=== PATIENT | male | born 1970 | race Caucasian/White ===

== ENCOUNTER 2021-01-12 20:05 | Inpatient (IN) | payer MEDICAID, OTHER, SELFPAY ==
--- NOTE | ~2021-01-12 | CT_ITS ---
EXAMINATION: CT ABDOMEN AND PELVIS WITHOUT CONTRAST CLINICAL INFORMATION: Left-sided pain with question of stone COMPARISON: MR abdomen 06/18/2017, CT abdomen pelvis 06/03/2017 TECHNIQUE: Multidetector volumetric imaging was performed from the superior aspect of the liver through the pubic symphysis. Sagittal and coronal reformatted images were obtained on the technologist's workstation. This CT examination was performed using dose optimization techniques as appropriate, variously including the following: *Automated exposure control *Adjustment of mA and/or kV according to patient size (this includes techniques or standardized protocols for targeted exams where dose is matched to indication/reason for exam; i.e. extremities or head) *Use of iterative reconstruction technique DLP: 541 mGy-cm FINDINGS: LUNG BASES: The visualized lung bases are unremarkable. LIVER, GALLBLADDER, AND BILIARY TREE: The liver is normal in size, shape, and attenuation. 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 There is one small hypodensity seen in the liver measuring 5 mm (4:227) that probably represents a small cyst. No focal hepatic lesion or biliary ductal dilatation is present. The gallbladder is unremarkable with no evidence of radiopaque gallstones, gallbladder wall thickening, or obvious pericholecystic inflammatory changes. PANCREAS: Unremarkable. SPLEEN: Unremarkable. ADRENAL GLANDS: Unremarkable. KIDNEYS AND URETERS: The kidneys are normal in size, shape, and attenuation. [place] is nonrotated with an anteriorly facing renal pelves. A water density benign Bosniak class I cyst is noted in the right kidney (4:211). No solid renal masses are seen but assessment is limited on noncontrast studies. No hydronephrosis, hydroureter, or calculi seen. No perinephric stranding. BLADDER: Unremarkable. GASTROINTESTINAL TRACT: Of note, in the distal descending colon there is evidence of acute diverticulitis with pericolonic thickening and associated thickening of the lateral conal fascia inflammatory changes extending into the pericolonic fat. Scattered diverticula seen elsewhere in the colon. The small and large bowel are otherwise unremarkable. The appendix is unremarkable. ABDOMINAL WALL: No significant hernia is appreciated. LYMPH NODES: No retroperitoneal lymphadenopathy. VASCULAR: Unremarkable. PELVIC VISCERA: Unremarkable. OSSEOUS STRUCTURES: Unremarkable. CT/CT abdomen pelvis wo con IMPRESSION: Acute uncomplicated diverticulitis distal descending colon. This critical result was discussed with Dr. Ng at 10:30 PM on the evening of the exam and it was ascertained that the content and urgency of the report was understood at the time of direct communication. Incidental note made of a tiny hepatic cyst and left renal cyst which need no further follow-up.
[2021-01-12 20:33] VITALS: BP 112/71; PULSE 93; RESP 16; TEMP 37.3; O2SAT 95; BMI 20.3
[2021-01-12 20:50] LABS: Appearance Urine CLEAR; Color Urine YELLOW; Glucose Urine UA NEG (NEG); Leukocyte Esterase Urine NEG (NEG); Nitrite Urine NEG (NEG); PH 6.5 (5.0-8.0); UACC Culture Trigger NO; Urine Blood 1+ (NEG); Urine Ketones NEG (NEG); Urine Protein NEG (NEG-TRACE)
[2021-01-12 20:55] LABS: Mucus Urine 1+ /LPF; Squamous Epithelial Cell Urine TRACE /LPF
[2021-01-12 20:56] LABS: RBC Urine 0-2 /HPF (0); WBC Urine 0 /HPF (0-4)
[2021-01-12 21:45] VITALS: BP 124/80; PULSE 89; RESP 16; TEMP 37; O2SAT 95
[2021-01-12 21:55] LABS: MANUAL DIFF FLAG NO
--- NOTE | 2021-01-12 21:56 | ED_ITS ---
HPI - Abdominal Pain General Chief Complaint: Abdominal Pain Stated Complaint: Abdominal pain Time Seen by Provider: 01/12/21 21:56 Source: patient and family Mode of arrival: ambulatory Limitations: language barrier History of Present Illness HPI narrative: Patient with no significant history of abdominal complaints in the past, no history of kidney stone noticed gradual onset of pain in left lower quadrant radiating to the left testicle for last 2 days pain is getting worse today no fever no chills no urinary symptoms no diarrhea no blood in the stool patient not eating much for last 24 hours because of pain , pain increased on ambulation no fever or chills patient never had similar pain in the past Related Data Home Medications Medication Instructions Recorded Confirmed No Known Home Meds 01/12/21 01/12/21 Allergies Allergy/AdvReac Type Severity Reaction Status Date / Time No Known Allergies Allergy Verified 01/12/21 20:32 [No Known Allergies*] Review of Systems Review of Systems Yes all other systems are reviewed and are negative Physical Exam Vital Signs: Vital Signs: Last Vital Signs Temp 98.6 F 01/12/21 21:45 Pulse 75 01/12/21 23:33 Resp 16 01/12/21 23:33 BP 120/77 01/12/21 23:33 Pulse Ox 96 01/12/21 23:31 Body Mass Index 20.3 Appearance: Alert. Oriented X3. Mild distress Eyes: No pallor or icterus ENT: Pharynx normal. Oral Mucosa moist Neck: Normal inspection. Neck supple. CVS: Normal heart rate and rhythm. Pulses normal. Respiratory: No respiratory distress. Equal air entry bilateral, no wheezing/rales/rhonchi Abdomen: Soft , deep tenderness left lower quadrant with guarding no rebound tenderness, Bowel sounds are present, no mass palpable, no CVA tenderness Skin: Skin warm and dry. Normal skin color. Normal skin turgor. Extremities: No lower extremity edema. No calf tenderness Neuro: Oriented X 3. MDM - Abdominal Pain MDM Narrative Medical decision making narrative: Patient with leukocytosis of 16,000, lactic acid 0.6, UA 1+ RBCs CT scan negative for kidney stone shows uncomplicated diverticulitis will admit patient for IV antibiotic Levaquin and Flagyl Lab Data Attestation: I reviewed the patient's lab results. Result diagrams: 01/12/21 21:51 01/12/21 21:51 Labs: Lab Results 01/12/21 01/12/21 01/12/21 Range/Units 20:43 21:51 21:51 WBC 16.0 H (4.8-10.8) X10*3/uL RBC 5.18 (4.60-5.80) X10*6/uL Hgb 15.8 (14.0-18.0) g/dl Hct 46.4 (42-52) % MCV 89.6 (80-98) fL MCH 30.5 (27.0-33.0) pg MCHC 34.1 (31.0-36.0) g/dl RDW 12.7 (11.0-16.0) % Plt Count 270 (160-400) X10*3/uL MPV 9.6 (9.4-12.4) fL Immature Gran % (Auto) 0.5 H (0.0-0.4) % Neut % (Auto) 72.2 (45-73) % Lymph % (Auto) 16.9 L (20-40) % [place] % (Auto) 9.0 (2-11) % Eos % (Auto) 1.0 (0-4) % Baso % (Auto) 0.4 (0-2) % Lymph # (Auto) 2.7 (1.2-4.9) X10*3/uL [place] # (Auto) 1.4 H (0.1-1.2) X10*3/uL Eos # (Auto) 0.2 (0.0-0.4) X10*3/uL Baso # (Auto) 0.1 (0.0-0.2) X10*3/uL Abs Immat Gran (auto) 0.08 H (0.00-0.03) X10*3/uL Absolute Neuts (auto) 11.6 H (2.0-8.3) X10*3/uL Absolute Nucleated RBC 0.000 (0.0-0.012) X10*3/uL Nucleated RBC % (auto) 0.0 (0.0-0.2) /100WBC Sodium 139 (135-145) mmol/L Potassium 3.8 (3.3-5.1) mmol/L Chloride 107 (96-108) mmol/L Carbon Dioxide 23 (22-29) mmol/L Anion Gap 13 (12-20) BUN 19 H (9-16) mg/dL Creatinine 1.44 H (0.5-1.4) mg/dL Estim Creat Clear Calc 59.0 Estimated GFR 52 Random Glucose 99 (60-115) mg/dL Lactic Acid (0.5-2.0) mmol/L Calcium 9.0 (8.4-10.2) mg/dL Total Bilirubin 0.7 (0.0-1.0) mg/dL AST 46 H (5-37) U/L ALT 30 (0-40) U/L Alkaline Phosphatase 70 (39-117) U/L Total Protein 7.2 (6.5-8.0) g/dL Albumin 4.5 (3.5-5.0) g/dL Urine Color YELLOW Urine Appearance CLEAR Urine pH 6.5 (5.0-8.0) Ur Specific [place] 1.010 (1.005-1.025) Urine Protein NEG (NEG-TRACE) MG/DL Urine Glucose (UA) NEG (NEG) MG/DL Urine Ketones NEG (NEG) MG/DL Urine Blood 1+ H (NEG) Urine Nitrite NEG (NEG) Ur Leukocyte Esterase NEG (NEG) Urine RBC 0-2 (0) /HPF Urine WBC 0 (0-4) /HPF Ur Squamous Epith Cells TRACE /LPF Urine Bacteria NONE /LPF Urine Mucus 1+ /LPF 01/12/ Range/Units 22:43 WBC (4.8-10.8) X10*3/uL RBC (4.60-5.80) X10*6/uL Hgb (14.0-18.0) g/dl Hct (42-52) % MCV (80-98) fL MCH (27.0-33.0) pg MCHC (31.0-36.0) g/dl RDW (11.0-16.0) % Plt Count (160-400) X10*3/uL MPV (9.4-12.4) fL Immature Gran % (Auto) (0.0-0.4) % Neut % (Auto) (45-73) % Lymph % (Auto) (20-40) % [place] % (Auto) (2-11) % Eos % (Auto) (0-4) % Baso % (Auto) (0-2) % Lymph # (Auto) (1.2-4.9) X10*3/uL [place] # (Auto) (0.1-1.2) X10*3/uL Eos # (Auto) (0.0-0.4) X10*3/uL Baso # (Auto) (0.0-0.2) X10*3/uL Abs Immat Gran (auto) (0.00-0.03) X10*3/uL Absolute Neuts (auto) (2.0-8.3) X10*3/uL Absolute Nucleated RBC (0.0-0.012) X10*3/uL Nucleated RBC % (auto) (0.0-0.2) /100WBC Sodium (135-145) mmol/L Potassium (3.3-5.1) mmol/L Chloride (96-108) mmol/L Carbon Dioxide (22-29) mmol/L Anion Gap (12-20) BUN (9-16) mg/dL Creatinine (0.5-1.4) mg/dL Estim Creat Clear Calc Estimated GFR Random Glucose (60-115) mg/dL Lactic Acid 0.9 (0.5-2.0) mmol/L Calcium (8.4-10.2) mg/dL Total Bilirubin (0.0-1.0) mg/dL AST (5-37) U/L ALT (0-40) U/L Alkaline Phosphatase (39-117) U/L Total Protein (6.5-8.0) g/dL Albumin (3.5-5.0) g/dL Urine Color Urine Appearance Urine pH (5.0-8.0) Ur Specific [place] (1.005-1.025) Urine Protein (NEG-TRACE) MG/DL Urine Glucose (UA) (NEG) MG/DL Urine Ketones (NEG) MG/DL Urine Blood (NEG) Urine Nitrite (NEG) Ur Leukocyte Esterase (NEG) Urine RBC (0) /HPF Urine WBC (0-4) /HPF Ur Squamous Epith Cells /LPF Urine Bacteria /LPF Urine Mucus /LPF Discharge Plan Discharge Clinical Impression: Diverticulitis Patient Disposition: Admitted As [facility] Past Medical History Surgical History Hx of vasectomy Social History Social History Smoked in Last 30 Days: No Use of substances other than those prescribed or required for medical reasons: No Advance Directives: No Advance Directives Information Provided: Yes
[2021-01-12 21:57] LABS: Basophils Absolute Auto 0.1 X10*3/uL (0.0-0.2); Basophils Percent Auto 0.4 % (0-2); Eosinophils Absolute Auto 0.2 X10*3/uL (0.0-0.4); Hematocrit 46.4 % (42-52); Hemoglobin 15.8 g/dl (14.0-18.0); Imm Gran Abs Auto 0.08 X10*3/uL (0.00-0.03); Imm Gran Pct Auto 0.5 % (0.0-0.4); Lymphocytes Absolute Auto 2.7 X10*3/uL (1.2-4.9); Lymphocytes Percent Auto 16.9 % (20-40); Mean Corpuscular HGB Conc 34.1 g/dl (31.0-36.0); Mean Corpuscular Hemoglobin 30.5 pg (27.0-33.0); Mean Corpuscular Volume 89.6 fL (80-98); Mean Platelet Volume 9.6 fL (9.4-12.4); Monocytes Absolute Auto 1.4 X10*3/uL (0.1-1.2); Neutrophils Absolute Auto 11.6 X10*3/uL (2.0-8.3); Neutrophils Percent Auto 72.2 % (45-73); Platelet Count 270 X10*3/uL (160-400); Red Blood Count 5.18 X10*6/uL (4.60-5.80); Red Cell Distribution Width 12.7 % (11.0-16.0)
[2021-01-12 22:11] LABS: Alanine Aminotransferase 30 U/L (0-40); Albumin Level 4.5 g/dL (3.5-5.0); Alkaline Phosphatase 70 U/L (39-117); Anion Gap 13 (12-20); Aspartate Amino Transferase 46 U/L (5-37); Bilirubin Total 0.7 mg/dL (0.0-1.0); Blood Urea Nitrogen 19 mg/dL (9-16); Carbon Dioxide 23 mmol/L (22-29); Chloride 107 mmol/L (96-108); Estimated Glomerular Filt Rate 52; Glucose Random 99 mg/dL (60-115); Potassium 3.8 mmol/L (3.3-5.1); Sodium 139 mmol/L (135-145); Total Protein 7.2 g/dL (6.5-8.0)
[2021-01-12] MEDS: Ketorolac Tromethamine 15 MG/ML VIAL 30 MG IVPUSH (22:19)
[2021-01-12] MEDS: ondansetron HCL 4 MG/2 ML VIAL IVPUSH (22:20)
[2021-01-12] MEDS: Morphine Sulfate 4 MG/ML CARTRIDGE IVPUSH (22:20)
[2021-01-12] MEDS: levoFLOXacin/D5W 500 MG/100 ML PIGGYBACK 100 MG IV (22:47)
[2021-01-12 23:03] LABS: Lactic Acid 0.9 mmol/L (0.5-2.0)
[2021-01-12 23:31] VITALS: BP 120/77; PULSE 79; RESP 16; O2SAT 96
[2021-01-12 23:32] VITALS: BP 120/77; PULSE 78; RESP 16
[2021-01-12 23:33] VITALS: BP 120/77; PULSE 75; RESP 16
[2021-01-12] MEDS: 0.9 % Sodium Chloride 1,000 ML 999 ML IVCONT (23:34)
[2021-01-12] MEDS: metroNIDAZOLE/NS 500 MG/100 ML PIGGYBACK 100 MG IV (23:38)
[2021-01-13 00:18] LABS: COVID-19 Test Negative (Negative); IDNOW Serial# 9DD0AD1C
[2021-01-13] MEDS: Lactated Ringers 1,000 ML 100 ML IVCONT ×3 (01:13→21:43)
[2021-01-13] MEDS: Heparin Sodium,Porcine 5,000 UNIT/ML VIAL 5000 UNIT SUBCUT ×3 (01:14→23:32)
[2021-01-13] MEDS: 0.9 % Sodium Chloride Flush 3 ML SYRINGE IVFLUSH (01:16)
[2021-01-13 01:46] VITALS: BP 135/77; PULSE 75; RESP 18; TEMP 36.3; O2SAT 96
[2021-01-13] MEDS: metroNIDAZOLE/NS 500 MG/100 ML PIGGYBACK 100 MG IV ×3 (05:31→23:21)
[2021-01-13 06:04] LABS: MANUAL DIFF FLAG NO
[2021-01-13 06:11] LABS: Basophils Absolute Auto 0.1 X10*3/uL (0.0-0.2); Basophils Percent Auto 0.6 % (0-2); Eosinophils Absolute Auto 0.3 X10*3/uL (0.0-0.4); Eosinophils Percent Auto 3.3 % (0-4); Hematocrit 43.1 % (42-52); Hemoglobin 14.1 g/dl (14.0-18.0); Imm Gran Abs Auto 0.06 X10*3/uL (0.00-0.03); Imm Gran Pct Auto 0.6 % (0.0-0.4); Lymphocytes Absolute Auto 2.7 X10*3/uL (1.2-4.9); Lymphocytes Percent Auto 26.6 % (20-40); Mean Corpuscular HGB Conc 32.7 g/dl (31.0-36.0); Mean Corpuscular Hemoglobin 30.3 pg (27.0-33.0); Mean Corpuscular Volume 92.7 fL (80-98); Monocytes Absolute Auto 1.1 X10*3/uL (0.1-1.2); Monocytes Percent Auto 10.8 % (2-11); Neutrophils Absolute Auto 5.8 X10*3/uL (2.0-8.3); Neutrophils Percent Auto 58.1 % (45-73); Platelet Count 225 X10*3/uL (160-400); Red Blood Count 4.65 X10*6/uL (4.60-5.80); Red Cell Distribution Width 13.1 % (11.0-16.0)
--- NOTE | 2021-01-13 06:18 | PM.IMHP ---
History of Present Illness Date of Service: 01/13/21 Chief Complaint: abd pain Is a 50-year-old male, Afghan speaking only, with no significant past medical history presents to the hospital with abdominal pain that started on night. The pain is localized to the left lower abdomen, 5/10, intermittent, nonradiating, worse with walking and movement, relieved by pain medication, no previous similar episode. Patient denies any fever or chills,, no chest pain, no shortness of breath, no diarrhea or constipation, no urinary symptoms and no lower extremity edema. On arrival to the ED patient hemodynamically stable with No significant abnormal vitals Labs done on arrival reviewed show BUN of 19 with a creatinine of 1.44 with no other significant abnormality. No previous labs for comparison. Abdominal pelvic CT shows acute uncomplicated diverticulitis distal descending colon Patient will be admitted for management Review of Systems Review of Systems: Yes all other systems are reviewed and are negative [facility] Medical History No pertinent past medical history Family History Father Hypertension Mother Diabetes Pertinent family history: No pertinent family history Surgical History Hx of vasectomy Social History Household Members: Family Housing: Apartment Do you presently have visiting nurse or other home services: No Patient Tobacco Use Status: Never used Tobacco Smoked in Last 30 Days: No Use of substances other than those prescribed or required for medical reasons: No Have you been hit, kicked, punched, or otherwise hurt by someone within the past year? If so, by whom?: No Do you feel safe in your current relationship?: Yes Is there a partner from a previous relationship who is making you feel unsafe now?: No Are you made to feel afraid or neglected: No Advance Directives: No Advance Directives Information Provided: Yes Do you have thoughts of harming others: None Do you have a plan to hurt others: No Plan Recently lost weight without trying: No Meds Allergies Allergy/AdvReac Type Severity Reaction Status Date / Time No Known Allergies Allergy Verified 01/12/21 20:32 [No Known Allergies*] Active Medications: Current Medications Acetaminophen (Acetaminophen 325 Mg Tablet) 650 mg PO Q6H PRN PRN Reason: Pain, Mild (Pain Scale 1-3) Heparin Sodium (Porcine) (Heparin Sodium,Porcine 5,000 Unit/Ml Vial) 5,000 unit SUBCUT Q12H [facility] Last Admin: 01/13/21 01:14 Dose: 5,000 unit Documented by: Metronidazole (Flagyl) 500 mg in 100 mls @ 100 mls/hr IV Q8H [facility] Last Admin: 01/13/21 05:31 Dose: 100 mls/hr Documented by: Lactated Ringer's (Lr) 1,000 mls @ 100 mls/hr IVCONT .Q10H [facility] Last Admin: 01/13/21 01:13 Dose: 100 mls/hr Documented by: Levofloxacin (Levaquin) 750 mg in 150 mls @ 100 mls/hr IV Q24H [facility] Ondansetron HCl (Ondansetron Hcl 4 Mg/2 Ml Vial) 4 mg IVPUSH Q8H PRN PRN Reason: Nausea and Vomiting Oxycodone HCl (Oxycodone Hcl Immed Release 5 Mg Tablet) 5 mg PO Q6H PRN PRN Reason: Pain, Severe (Pain Scale 7-10) Sodium Chloride (0.9 % Sodium Chloride Flush 3 Ml Syringe) 3 ml IVFLUSH QSHIFT [facility] Last Admin: 01/13/21 01:16 Dose: 3 ml Documented by: Home Medications Medication Instructions Recorded Confirmed Last Taken Type No Known Home Meds 01/12/21 01/12/21 Unknown History Physical Exam Vital Signs and Narrative: Vital Signs: Last Vital Signs Temp 97.3 F 01/13/21 01:46 Pulse 75 01/13/21 01:46 Resp 18 01/13/21 01:46 BP 135/77 01/13/21 01:46 Pulse Ox 96 01/13/21 01:46 Body Mass Index 20.3 Const: General: cooperative and no acute distress Orientation/consciousness: patient oriented x3 Eyes: General: appearance normal, both eyes and all related structures Pupils: Equal, round and reactive pupils present Resp: Effort & Inspection: normal respiratory effort Auscultation: clear to auscultation bilaterally Cardio: Rate: regular rate Rhythm: regular rhythm GI: Other: Mild tenderness in the left lower quadrant, no rebound no guarding Palpation (GI): Soft to palpation Auscultation: normal bowel sounds Skin: General skin exam: no rashes or lesions noted Neuro: General: patient oriented x3 Cranial nerves: Yes Equal, round and reactive pupils present Cognition (Neuro): normal cognition Extrem: General: Yes normal to inspection and Yes no pedal edema Results Labs CBC and Chem 7: 01/13/21 05:35 01/12/21 21:51 Labs: Laboratory Results - last 24 hr 01/12/21 01/12/21 01/12/21 20:43 21:51 21:51 MCV 89.6 MCH 30.5 MCHC 34.1 RDW 12.7 Plt Count 270 MPV 9.6 Immature Gran % (Auto) 0.5 H Neut % (Auto) 72.2 Lymph % (Auto) 16.9 L [place] % (Auto) 9.0 Eos % (Auto) 1.0 Baso % (Auto) 0.4 Lymph # (Auto) 2.7 [place] # (Auto) 1.4 H Eos # (Auto) 0.2 Baso # (Auto) 0.1 Abs Immat Gran (auto) 0.08 H Absolute Neuts (auto) 11.6 H Absolute Nucleated RBC 0.000 Nucleated RBC % (auto) 0.0 Anion Gap 13 Estim Creat Clear Calc 59.0 Estimated GFR 52 Random Glucose 99 Lactic Acid Calcium 9.0 Total Bilirubin 0.7 AST 46 H ALT 30 Alkaline Phosphatase 70 Total Protein 7.2 Albumin 4.5 Urine Color YELLOW Urine Appearance CLEAR Urine pH 6.5 Ur Specific [place] 1.010 Urine Protein NEG Urine Glucose (UA) NEG Urine Ketones NEG Urine Blood 1+ H Urine Nitrite NEG Ur Leukocyte Esterase NEG Urine RBC 0-2 Urine WBC 0 Ur Squamous Epith Cells TRACE Urine Bacteria NONE Urine Mucus 1+ COVID-19 (SILVIA) COVID-19 Clin Com 01/12/21 01/12/21 01/13/21 22:43 23:46 05:35 MCV 92.7 MCH 30.3 MCHC 32.7 RDW 13.1 Plt Count 225 MPV 10.0 Immature Gran % (Auto) 0.6 H Neut % (Auto) 58.1 Lymph % (Auto) 26.6 [place] % (Auto) 10.8 Eos % (Auto) 3.3 Baso % (Auto) 0.6 Lymph # (Auto) 2.7 [place] # (Auto) 1.1 Eos # (Auto) 0.3 Baso # (Auto) 0.1 Abs Immat Gran (auto) 0.06 H Absolute Neuts (auto) 5.8 Absolute Nucleated RBC 0.000 Nucleated RBC % (auto) 0.0 Anion Gap Estim Creat Clear Calc Estimated GFR Random Glucose Lactic Acid 0.9 Calcium Total Bilirubin AST ALT Alkaline Phosphatase Total Protein Albumin Urine Color Urine Appearance Urine pH Ur Specific [place] Urine Protein Urine Glucose (UA) Urine Ketones Urine Blood Urine Nitrite Ur Leukocyte Esterase Urine RBC Urine WBC Ur Squamous Epith Cells Urine Bacteria Urine Mucus COVID-19 (SILVIA) Negative COVID-19 Clin Com See Note Imaging Radiologist's Impressions: Impressions Abdomen/Pelvis CT 01/12/21 22:02 IMPRESSION: Acute uncomplicated diverticulitis distal descending colon. This critical result was discussed with Dr. Ng at 10:30 PM on the evening of the exam and it was ascertained that the content and urgency of the report was understood at the time of direct communication. Incidental note made of a tiny hepatic cyst and left renal cyst which need no further follow-up. Assessment and Plan (1) Diverticulitis: Status: Acute This is a 50-year-old male with no significant past medical history presents to the hospital with abdominal pain found to have diverticulitis # diverticulitis - uncomplicated, patient afebrile, leukocytosis - will start him on IV antibiotic - follow cultures - patient would like to go home as soon as possible and therefore given the uncomplicated nature of his diverticulitis can possibly be discharged tomorrow with p.o. antibiotic DVT prophylaxis: Lovenox Quality Stroke Does the patient have a stroke diagnosis?: No VTE Prior VTE?: No VTE Risk Level:: Medical - moderate - high VTE Device Contraindication: Treatment Not Indicated VTE Drug Contraindication: N/A - Med Ordered
[2021-01-13 06:40] LABS: Anion Gap 9 (12-20); Blood Urea Nitrogen 16 mg/dL (9-16); Calcium 8.2 mg/dL (8.4-10.2); Carbon Dioxide 28 mmol/L (22-29); Chloride 108 mmol/L (96-108); Creatinine Clr Calc Pharmacy 61.1; Estimated Glomerular Filt Rate 54; Glucose Random 91 mg/dL (60-115); Sodium 141 mmol/L (135-145)
[2021-01-13 07:16] VITALS: BP 126/73; PULSE 69; RESP 20; TEMP 36.7; O2SAT 98
--- NOTE | 2021-01-13 11:18 | MHC.CM.PN ---
CM MET WITH PT WHO IS [place] SPEAKING. PT DECLINED OFFER FOR IMPLEMENTATION CONSULTANT AND USED HIS CELL PHONE. PER DISCUSSION, PT LIVES WITH FAMILY AND IS FULLY INDEPENDENT WITH ALL CARE PT HAS NO DME AND NO HOME SERVICES PT REPORTS HIS PCP IS DR MINA PT DOES NOT HAVE A HCP BUT REPORTS HE WILL DISCUSS THIS WITH HIS WHEN SHE ARRIVES AROUND 1500 HOURS. PT IS AWARE CM CAN ASSIST WITH HCP COMPLETION. CURRENT DC PLAN IS HOME WITH NO SERVICES PT WILL SELF ARRANGE TRANSPORTATION
--- NOTE | 2021-01-13 11:31 | PM.IMPN ---
Progress Note: A&P (1) Diverticulitis: Status: Acute Assessment and Plan: This is a 50-year-old male with no significant past medical history presents to the hospital with abdominal pain found to have diverticulitis Diverticulitis. uncomplicated, patient afebrile, leukocytosis initially Continue Levaquin, Flagyl Clear liquid diet for now, advance as tolerated follow cultures GI consult DVT prophylaxis Lovenox Attending Dr. Lakhani Subjective Subjective Date of Service: 01/13/21 Review of Systems Follow up diverticulitis Pain is pretty well resolved Has not eaten yet, plans to try the clear liquids Had some nausea yesterday but none today or diarrhea Physical Exam Vital Signs: Vital Signs: Last Vital Signs Temp 98.1 F 01/13/21 07:16 Pulse 69 01/13/21 07:16 Resp 20 01/13/21 07:16 BP 126/73 01/13/21 07:16 Pulse Ox 98 01/13/21 07:16 Body Mass Index 20.3 Appearing in no acute distress lung sounds are clear to auscultation heart regular rate rhythm, clear S1, S2 positive bowel sounds, abdomen is soft, nontender neuro patient is alert x3, no focal deficits Objective Data Current Medications Acetaminophen (Acetaminophen 325 Mg Tablet) 650 mg PO Q6H PRN PRN Reason: Pain, Mild (Pain Scale 1-3) Heparin Sodium (Porcine) (Heparin Sodium,Porcine 5,000 Unit/Ml Vial) 5,000 unit SUBCUT Q12H [facility] Last Admin: 01/13/21 01:14 Dose: 5,000 unit Documented by: Metronidazole (Flagyl) 500 mg in 100 mls @ 100 mls/hr IV Q8H [facility] Last Infusion: 01/13/21 06:37 Dose: Infused Documented by: Lactated Ringer's (Lr) 1,000 mls @ 100 mls/hr IVCONT .Q10H [facility] Last Admin: 01/13/21 01:13 Dose: 100 mls/hr Documented by: Levofloxacin (Levaquin) 750 mg in 150 mls @ 100 mls/hr IV Q24H [facility] Ondansetron HCl (Ondansetron Hcl 4 Mg/2 Ml Vial) 4 mg IVPUSH Q8H PRN PRN Reason: Nausea and Vomiting Oxycodone HCl (Oxycodone Hcl Immed Release 5 Mg Tablet) 5 mg PO Q6H PRN PRN Reason: Pain, Severe (Pain Scale 7-10) Sodium Chloride (0.9 % Sodium Chloride Flush 3 Ml Syringe) 3 ml IVFLUSH QSHIFT [facility] Last Admin: 01/13/21 08:11 Dose: Not Given Documented by: Labs CBC & Chem 7: 01/13/21 05:35 01/13/21 05:35 Labs: Laboratory Results - last 24 hr 01/12/21 01/12/21 01/12/21 20:43 21:51 21:51 MCV 89.6 MCH 30.5 MCHC 34.1 RDW 12.7 Plt Count 270 MPV 9.6 Immature Gran % (Auto) 0.5 H Neut % (Auto) 72.2 Lymph % (Auto) 16.9 L [place] % (Auto) 9.0 Eos % (Auto) 1.0 Baso % (Auto) 0.4 Lymph # (Auto) 2.7 [place] # (Auto) 1.4 H Eos # (Auto) 0.2 Baso # (Auto) 0.1 Abs Immat Gran (auto) 0.08 H Absolute Neuts (auto) 11.6 H Absolute Nucleated RBC 0.000 Nucleated RBC % (auto) 0.0 Anion Gap 13 Estim Creat Clear Calc 59.0 Estimated GFR 52 Random Glucose 99 Lactic Acid Calcium 9.0 Total Bilirubin 0.7 AST 46 H ALT 30 Alkaline Phosphatase 70 Total Protein 7.2 Albumin 4.5 Urine Color YELLOW Urine Appearance CLEAR Urine pH 6.5 Ur Specific [place] 1.010 Urine Protein NEG Urine Glucose (UA) NEG Urine Ketones NEG Urine Blood 1+ H Urine Nitrite NEG Ur Leukocyte Esterase NEG Urine RBC 0-2 Urine WBC 0 Ur Squamous Epith Cells TRACE Urine Bacteria NONE Urine Mucus 1+ COVID-19 ([facility]ILVIA) COVID-19 Clin Com 01/12/21 01/12/21 01/13/21 22:43 23:46 05:35 MCV 92.7 MCH 30.3 MCHC 32.7 RDW 13.1 Plt Count 225 MPV 10.0 Immature Gran % (Auto) 0.6 H Neut % (Auto) 58.1 Lymph % (Auto) 26.6 [place] % (Auto) 10.8 Eos % (Auto) 3.3 Baso % (Auto) 0.6 Lymph # (Auto) 2.7 [place] # (Auto) 1.1 Eos # (Auto) 0.3 Baso # (Auto) 0.1 Abs Immat Gran (auto) 0.06 H Absolute Neuts (auto) 5.8 Absolute Nucleated RBC 0.000 Nucleated RBC % (auto) 0.0 Anion Gap Estim Creat Clear Calc Estimated GFR Random Glucose Lactic Acid 0.9 Calcium Total Bilirubin AST ALT Alkaline Phosphatase Total Protein Albumin Urine Color Urine Appearance Urine pH Ur Specific [place] Urine Protein Urine Glucose (UA) Urine Ketones Urine Blood Urine Nitrite Ur Leukocyte Esterase Urine RBC Urine WBC Ur Squamous Epith Cells Urine Bacteria Urine Mucus COVID-19 (SILVIA) Negative COVID-19 Clin Com See Note 01/13/21 05:35 MCV MCH MCHC RDW Plt Count MPV Immature Gran % (Auto) Neut % (Auto) Lymph % (Auto) [place] % (Auto) Eos % (Auto) Baso % (Auto) Lymph # (Auto) [place] # (Auto) Eos # (Auto) Baso # (Auto) Abs Immat Gran (auto) Absolute Neuts (auto) Absolute Nucleated RBC Nucleated RBC % (auto) Anion Gap 9 L Estim Creat Clear Calc 61.1 Estimated GFR 54 Random Glucose 91 Lactic Acid Calcium 8.2 L D Total Bilirubin AST ALT Alkaline Phosphatase Total Protein Albumin Urine Color Urine Appearance Urine pH Ur Specific [place] Urine Protein Urine Glucose (UA) Urine Ketones Urine Blood Urine Nitrite Ur Leukocyte Esterase Urine RBC Urine WBC Ur Squamous Epith Cells Urine Bacteria Urine Mucus COVID-19 (SILVIA) COVID-19 Clin Com Quality Stroke Does the patient have a stroke diagnosis?: No VTE Prior VTE?: No VTE Risk Level:: Medical - moderate - high VTE Device Contraindication: Treatment Not Indicated VTE Drug Contraindication: N/A - Med Ordered
[2021-01-13 11:34] VITALS: BP 128/80; PULSE 72; RESP 20; TEMP 36.7; O2SAT 98
--- NOTE | 2021-01-13 13:03 | P.CNGI_ITS ---
History of Present Illness Data of Consult Service Date: 01/13/21 Requesting physician: Lakisha Doe Primary Care Provider: Unknown Physician HPI Reason for consult: acute diverticulitis 50 year old Israeli (Portugese speaking) male presented to [facility] [place] ED on 01/12/21 with LLQ pain: HPI narrative: Patient with no significant history of abdominal complaints in the past,? no history of kidney stone noticed gradual onset of pain in left lower quadrant radiating to the left testicle for last 2 days pain is getting worse today no fever no chills no urinary symptoms no diarrhea no blood in the stool patient not eating much for last 24 hours because of pain , pain increased on ambulation no fever or chills patient never had similar pain in the past On arrival to the ED patient hemodynamically stable with No significant abnormal vitals Labs done on arrival reviewed show wbc of 16K, BUN of 19 with a creatinine of 1.44 with no other significant abnormality.? No previous labs for comparison. Pt was admitted and started on IV antibiotics. Notes improvement in abdominal pain and is tolerating a clear liquid diet. Patient denies symptoms of heartburn, dysphagia, change in appetite or weight. Denies recent change in bowel habits, constipation, diarrhea, black stools or rectal bleeding. Patient denies major cardiac or pulmonary problems, loud snoring or sleep apnea Denies being on chronic anticoagulation. Patient denies known family history of colon polyps, colon cancer or other GI malignancies. Pt is and has 4 children He works in House keeping services. IMAGING STUDIES: 01/12/[address] SCAN SHOWED: Acute uncomplicated diverticulitis distal descending colon. Incidental note made of a tiny hepatic cyst and left renal cyst which need no further follow-up. 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 Review of Systems Verdana 4l Constitutional: Verdana 4d Constitutional: Verdana 4d Verdana 4d Denies fever(s), Denies headache(s) and Denies weight loss Verdana 4l Eyes: Verdana 4d Verdana 4d Eyes: Verdana 4d Denies eye discharge and Denies irritation Verdana 4l ENT: Verdana 4d Reports Normal hearing present, Denies dysphagia, Denies dizziness and Denies headache(s) Verdana 4l Cardiovascular: Verdana 4d Cardiovascular: Verdana 4d Verdana 4d Denies chest pain, Denies leg edema and Denies dyspnea on exertion Verdana 4l Respiratory: Verdana 4d Verdana 4d Respiratory: Verdana 4d Denies cough and Denies dyspnea on exertion Verdana 4l Gastrointestinal: Verdana 4d Gastrointestinal: Verdana 4d Verdana 4d Reports abdominal pain, Denies change in bowel habits, Denies dysphagia and Denies heartburn Verdana 4l Genitourinary: Verdana 4d Verdana 4d Genitourinary: Verdana 4d Denies dysuria Verdana 4l Musculoskeletal: Verdana 4d Musculoskeletal: Verdana 4d Verdana 4d Denies back pain and Denies arthralgias Verdana 4l Integumentary/Breasts: Verdana 4d Skin/Breast: Verdana 4d Verdana 4d Denies pruritus, Denies rash and Denies jaundice Verdana 4l Neurologic: Verdana 4d Reports Normal hearing present, Denies Abnormal speech present, Denies dizziness, Denies headache(s) and Denies seizure-like activity Verdana 4l Psychiatric: Verdana 4d Verdana 4d Psychiatric: Verdana 4d Denies anxiety, Denies depression and Denies panic attacks Verdana 4l Endocrine: Verdana 4d Verdana 4d Endocrine: Verdana 4d Denies cold intolerance, Denies flushing and Denies heat intolerance PMFSH Past Medical History Medical History No pertinent past medical history Family History Family History Father Hypertension Mother Diabetes Surgical History Surgical History Hx of vasectomy Social History Social History Household Members: Family Housing: Apartment Do you presently have visiting nurse or other home services: No Patient Tobacco Use Status: Never used Tobacco service: No Current occupational status: unemployed Meds Allergies Allergy/AdvReac Type Severity Reaction Status Date / Time No Known Allergies Allergy Verified 04/10/21 11:28 [No Known Allergies*] Active Medications: Current Medications Acetaminophen (Acetaminophen 325 Mg Tablet) 650 mg PO Q6H PRN PRN Reason: Pain, Mild (Pain Scale 1-3) Heparin Sodium (Porcine) (Heparin Sodium,Porcine 5,000 Unit/Ml Vial) 5,000 unit SUBCUT Q12H [facility] Last Admin: 01/13/21 12:20 Dose: 5,000 unit Documented by: Metronidazole (Flagyl) 500 mg in 100 mls @ 100 mls/hr IV Q8H [facility] Last Infusion: 01/13/21 06:37 Dose: Infused Documented by: Lactated Ringer's (Lr) 1,000 mls @ 100 mls/hr IVCONT .Q10H [facility] Last Admin: 01/13/21 12:11 Dose: 100 mls/hr Documented by: Levofloxacin (Levaquin) 750 mg in 150 mls @ 100 mls/hr IV Q24H [facility]UAN ANTONIO Ondansetron HCl (Ondansetron Hcl 4 Mg/2 Ml Vial) 4 mg IVPUSH Q8H PRN PRN Reason: Nausea and Vomiting Oxycodone HCl (Oxycodone Hcl Immed Release 5 Mg Tablet) 5 mg PO Q6H PRN PRN Reason: Pain, Severe (Pain Scale 7-10) Sodium Chloride (0.9 % Sodium Chloride Flush 3 Ml Syringe) 3 ml IVFLUSH QSHIFT [facility] Last Admin: 01/13/21 08:11 Dose: Not Given Documented by: Physical Exam Verdana 4l Vital Signs: Verdana 4d Verdana 4d Vital Signs: Verdana 4d Verdana 4Bd Last Vital Signs Verdana 4d Custom [employer] Maker New 4d Custom Bow Maker New 4d Temp 98.1 F 01/13/21 11:34 Custom Bow Maker New 4d Pulse 72 01/13/21 11:34 Custom Bow Maker New 4d Resp 20 01/13/21 11:34 BP 128/80 01/13/21 11:34 Pulse Ox 98 01/13/21 11:34 Body Mass Index 20.3 Const: General: healthy appearing and no acute distress Nutritional Appearance: average body habitus Orientation/consciousness: patient oriented x3 Limitations: no limitations HENMT: Head: Yes normal to inspection Ears: hearing grossly normal bilaterally Mouth: Normal oral and palatal mucosa present Eyes: Sclerae: sclerae normal Pupils: Equal, round and reactive pupils present Neck: Neck: Yes normal visual inspection Chest: Chest palpation & inspection: normal inspection of the chest Resp: Effort & Inspection: normal respiratory effort Auscultation: clear to auscultation bilaterally Cardio: Palpation: normal PMI Rate: regular rate Rhythm: regular rhythm Heart sounds: S1 normal heart sound present, S2 normal heart sound present and no murmurs GI: Palpation (GI): Soft to palpation, Tenderness to palpation present (GI) (Mild LLQ tenderness without rebound) and No hepatosplenomegaly present Auscultation: normal bowel sounds Rectal Exam - Male: Yes deferred Skin: General skin exam: no rashes or lesions noted Neuro: General: patient oriented x3, gait normal and moves all extremities Cranial nerves: Yes Equal, round and reactive pupils present and Yes Normal hearing present Speech: No Abnormal speech present Psych: Appearance: grossly normal Mental Status: mental status grossly normal Results Labs CBC & Chem 7: 01/13/21 05:35 01/13/21 05:35 Labs: Short CBC 01/12/21 01/13/21 Range/Units 21:51 05:35 WBC 16.0 H 10.0 (4.8-10.8) X10*3/uL Hgb 15.8 14.1 (14.0-18.0) g/dl Hct 46.4 43.1 (42-52) % Plt Count 270 225 (160-400) X10*3/uL BMP 01/12/21 01/13/21 21:51 05:35 Sodium 139 141 Potassium 3.8 4.0 Chloride 107 108 Carbon Dioxide 23 28 BUN 19 H 16 Creatinine 1.44 H 1.39 Calcium 9.0 8.2 L D Liver Function 01/12/21 Range/Units 21:51 Total Bilirubin 0.7 (0.0-1.0) mg/dL AST 46 H (5-37) U/L ALT 30 (0-40) U/L Alkaline Phosphatase 70 (39-117) U/L Albumin 4.5 (3.5-5.0) g/dL Urine 01/12/21 Range/Units 20:43 Urine Color YELLOW Urine Appearance CLEAR Urine pH 6.5 (5.0-8.0) Ur Specific [place] 1.010 (1.005-1.025) Urine Protein NEG (NEG-TRACE) MG/DL Urine Glucose (UA) NEG (NEG) MG/DL Assessment and Plan (1) Diverticulitis: Status: Acute Plan 50 year old Israeli (Portugese speaking) male without significant medical problems admitted with LLQ pain x 2 days and diagnosed with acute diverticulitis on Abd CT scan. Pt's symptoms are improving on IV antibitoics and pain medications. RECOMMENDATIONS: 1. Continue IV antibiotics. 2. Advance diet in the am and if he tolerates solid food, he can be switched to PO antibiotics x 7 days and discharged home. 3. I will arrange for a Colonoscopy as an out patient in 4 to 6 weeks - procedure and potential complications including bleeding, perforation, reaction to anesthetic were reviewed with the patient with the help of a [employer] mri technician. Procedures Date of Service Date of Service: 01/13/21
[2021-01-13 15:36] VITALS: BP 130/83; PULSE 69; RESP 16; TEMP 37.2; O2SAT 97
--- NOTE | 2021-01-13 16:17 | MHC.CLN ---
NUTRITION VISITED WITH PATIENT USING TRANSLATING DEVICE. DIET=CLEAR LIQUIDS AND REPORTS THAT EATING WELL, BUT IS HUNGRY. COULD NOT REMEMBER HEIGHT. HEIGHT IN CHART=6'. PATIENT LYING IN BED, BUT HEIGHT APPEARS TO BE CLOSE TO 5'6 . IF HEIGHT=5'6 , BMI=24.3 AND PATIENT IS 105% OF IBW. IF HEIGHT=6', BMI=20.3 AND WEIGHT IS 84% OF IBW. PATIENT APPEARS WELL NOURISHED AND DOES NOT APPEAR TO BE UNDERWEIGHT. NOT CONSIDERED HIGH NUTRITIONAL RISK. FOLLOW WEEKLY.
[2021-01-13 19:23] VITALS: BP 129/83; PULSE 75; RESP 15; TEMP 37.1; O2SAT 97
[2021-01-13] MEDS: levoFLOXacin/D5W 750 MG/150 ML PIGGYBACK 100 MG IV (21:43)
[2021-01-14] VITALS: BP 132/87; PULSE 71; RESP 16; TEMP 36.6; O2SAT 98
[2021-01-14 04:00] VITALS: BP 142/85; PULSE 71; RESP 16; TEMP 36.9; O2SAT 97
[2021-01-14] MEDS: Lactated Ringers 1,000 ML 100 ML IVCONT (05:58)
[2021-01-14] MEDS: metroNIDAZOLE/NS 500 MG/100 ML PIGGYBACK 100 MG IV (05:58)
[2021-01-14 07:28] VITALS: BP 122/81; PULSE 72; RESP 18; TEMP 37.4; O2SAT 95
--- NOTE | 2021-01-14 10:05 | PM.DS ---
DS: Providers Provider Date of Service: 01/14/21 Date of admission: 01/12/21 23:19 Primary care physician: Unknown Physician Consults: 01/13/21 11:38 Consult to Gastroenterology Routine Consulting Provider: Maria Amos Reason for consultation: diverticulitis Has provider been notified: No Attending physician on discharge: Maico Lakhani Discharging clinician: Lakisha Doe DS: Diagnosis Discharge Diagnosis (1) Diverticulitis: Status: Acute DS: Summary Hospital Course Hospital Course: HP as admitting 50-year-old male, Italian speaking only,? with no significant past medical history presents to the hospital with abdominal pain that started on night.? The pain is localized to the left lower abdomen, 5/10, intermittent, nonradiating, worse with walking and movement, relieved by pain medication, no previous similar episode.? Patient denies any fever or chills,, no chest pain, no shortness of breath, no diarrhea or constipation, no urinary symptoms and no lower extremity edema. On arrival to the ED patient hemodynamically stable with No significant abnormal vitals. Labs done on arrival reviewed show BUN of 19 with a creatinine of 1.44 with no other significant abnormality.? No previous labs for comparison. Abdominal pelvic CT shows acute uncomplicated diverticulitis distal descending colon . Diverticulitis. Pain resolved. Treated with IV Levaquin and flagyl. Vital signs stable, labs within acceptable limits. Advanced diet to regular with no problems. Will send home with 8 more days of Levaquin and flagyl. Patient medically stable for discharge. DEB. Mild, resolved with IV fluids. Time Spent with Patient Time attestation: Total time spent providing and/or coordinating discharge services: Discharge coordination time: Greater than 30 minutes Quality: Stroke Does the patient have a stroke diagnosis?: No Physical Exam Vital Signs: Vital Signs: Last Vital Signs Temp 99.3 F 01/14/21 07:28 Pulse 72 01/14/21 07:28 Resp 18 01/14/21 07:28 BP 122/81 01/14/21 07:28 Pulse Ox 95 01/14/21 07:28 Body Mass Index 20.3 Appearing in no acute distress head is normocephalic atraumatic eyes pupils are PERRLA sclera is anicteric mouth throat mucous membranes are intact and moist neck is supple no lymphadenopathy, no JVD noted lung sounds are clear to auscultation heart regular rate rhythm, clear S1, S2 positive bowel sounds, abdomen is soft, nontender neuro patient is alert x3, no focal deficits DS: Data Data Completed and Pending Labs on day of discharge: Preliminary micro results at discharge 01/12/21 22:46 Blood Culture - Preliminary Blood - Venous No growth after 24 hours. 01/12/21 22:43 Blood Culture - Preliminary Blood - Venous No growth after 24 hours. Discharge Plan Discharge Anticipated Discharge Date/Time: 01/14/21 10:00 Patient Disposition: Home, Self-Care Discharge Diagnosis: Diverticulitis Referrals: Physician,Unknown J [Primary Care Provider] - 1 Week Discharge Medications: New levofloxacin 750 mg tablet 750 mg PO DAILY Qty: 8 RF: 0 metronidazole [Flagyl] 375 mg capsule 375 mg PO BID Qty: 16 RF: 0 Discharge Orders: Discharge Order (Routine); Ordered 01/14/21 Ordered By: Lakisha Doe Diet: advance to usual diet Activity on Discharge: As tolerated Stand Alone Forms: Patient Portal Discharge page Care Plan Goals: Complete resolution of symptoms Health Concerns: diverticulitis Plan of Treatment: Continue antibiotics as prescribed Assessment: See discharge summary
--- NOTE | 2021-01-14 10:18 | MHC.CM.PN ---
PATIENT IS DISCHARGED HOME - SELF CARE. RN AWARE OF PLAN. PATIENT IS ABLE TO ARRANGE FAMILY TRANSPORT HOME.
== END 2021-01-14 10:31 | disposition home or self-care (01) | DRG 244 ==
LOC: HO.ED 01-13 00:05 → HO.S3 01-13 00:23
PROVIDERS: Admitting Provider Internal Medicine; Emergency Provider Internal Medicine; PCP Internal Medicine; Visit Provider Nurse Practitioner Acute Care
DX: K57.32 Diverticulitis of large intestine without perforation or abscess without bleeding (principal); N17.9 Acute kidney failure, unspecified; Z20.822 Contact with and (suspected) exposure to COVID-19; Z23 Encounter for immunization; Z79.899 Other long term (current) drug therapy
CPT/HCPCS: 36415; 74176; 80048; 80053; 81001; 83605; 85025; 87040; 87635; 90686; 99285; J1885; J1956; J2270; J2405

== ENCOUNTER → 2021-04-10 10:50 | Outpatient (BNVA) | payer MEDICAID, OTHER, SELFPAY | PROVIDERS: PCP Internal Medicine; Referring Provider Internal Medicine; Visit Provider Internal Medicine Gastroenterology | DX: K57.92 Diverticulitis of intestine, part unspecified, without perforation or abscess without bleeding (principal) | CPT/HCPCS: 99212 ==

== ENCOUNTER 2021-04-21 12:16 | Day surgery (SDC) | payer MEDICAID, OTHER, SELFPAY ==
--- NOTE | 2021-04-18 09:40 | HO.ANESPROP2 ---
Documented by User: Emilia Andrew NP 04/18/21 09:40 HPI - Anesthesia Eval Consult details Narrative: 50yo M for Colonoscopy PMFSH Active Problems Active Problems: All Active Problems (Updated 04/17/21 @ 15:08 by Maria Amos MD) Diverticulitis (Acute ~01/12/21) Past Medical History Medical History No pertinent past medical history Family History Family History Father Hypertension Mother Diabetes Surgical History Surgical History Hx of vasectomy Social History Social History Household Members: Family Housing: Apartment Do you presently have visiting nurse or other home services: No Patient Tobacco Use Status: Never used Tobacco Use of substances other than those prescribed or required for medical reasons: No Have you been hit, kicked, punched, or otherwise hurt by someone within the past year? If so, by whom?: No Are you DNR?: No Advance Directives: No Advance Directives Information Provided: Yes service: No Current occupational status: unemployed Meds Allergies Allergy/AdvReac Type Severity Reaction Status Date / Time No Known Allergies Allergy Verified 04/10/21 11:28 [No Known Allergies*] Exam Exam Date and Time: April 18, 2021 0940 Pertinent Lab Results Pertinent Lab Results: Laboratory Tests 01/13/21 01/13/21 05:35 05:35 WBC 10.0 Hgb 14.1 Hct 43.1 Plt Count 225 Sodium 141 Potassium 4.0 Chloride 108 Carbon Dioxide 28 BUN 16 Creatinine 1.39 Assessment and Plan Assessment Anesthesia Assessment: Chart Reviewed Documented by User: Laura Santos MD 04/21/21 13:13 PMFSH Past Medical History Medical History No pertinent past medical history Family History Family History Father Hypertension Mother Diabetes Surgical History Surgical History Hx of vasectomy History of Problems with Anesthesia: No Social History Social History Household Members: Family Housing: Apartment Do you presently have visiting nurse or other home services: No Patient Tobacco Use Status: Never used Tobacco Use of substances other than those prescribed or required for medical reasons: No Have you been hit, kicked, punched, or otherwise hurt by someone within the past year? If so, by whom?: No Are you DNR?: No Advance Directives: No Advance Directives Information Provided: Yes service: No Current occupational status: unemployed Meds Allergies Allergy/AdvReac Type Severity Reaction Status Date / Time No Known Allergies Allergy Verified 04/10/21 11:28 [No Known Allergies*] Exam Airway Mallampati Class: II TM Dist: >3cm Neck ROM: Full Loose/Missing/Broken Teeth: No Heart: RRR Lungs: CTA Assessment and Plan Assessment Anesthesia Assessment: Anesthesia Plan Discussed Final Anesthetic Review History of Problems with Anesthesia: No NPO: Yes ASA Class: I Final Preanesthetic Review: Meds/Allgs Chart Reviewed, Consent Obtained/Reviewed and Anes Risks/Benef Reviewed Patient Risk: Low Procedure Risk: Low Anesthetic Plan Anesthetic Plan: MAC: Disposition: Standard PACU
[2021-04-21 12:35] VITALS: BMI 28.5
[2021-04-21 12:37] VITALS: BP 125/84; PULSE 77; RESP 18; TEMP 36.2; O2SAT 97
--- NOTE | 2021-04-21 12:59 | MHC.SHP ---
Pre-Procedural Eval Section A Date of Service: 04/21/21 The patient is an INPATIENT: No Changes since office visit: Yes Patient answered all questions; No Cold of Flu in the past 2 weeks, No New Medical Problems and No Changes in Medication The History & Physical has been completed within 30 days and I have reviewed it.: Yes Section B Chief Complaint: GERD, IBS Allergies: Allergies Allergy/AdvReac Type Severity Reaction Status Date / Time No Known Allergies Allergy Verified 04/10/21 11:28 [No Known Allergies*] Plan I have reviewed the history and physical and performed a pertinent physical examination on my patient. No changes have occurred unless specified.
[2021-04-21] MEDS: Lactated Ringers 1,000 ML 50 ML IVCONT (13:01)
--- NOTE | 2021-04-21 13:01 | P.OP_ITS ---
Operative Note Operative Note Date of Service: 04/21/21 Narrative: Pre-op diagnosis: Colon cancer screening, Episode of diverticulitis Post-op diagnosis:?other (Colon polyp, diverticulosis, hemorrhoids) Procedure: COLONOSCOPY TILL CECUM WITH BIOPSIES AND SNARE POLYPECTOMY Consent: Indications for the procedure and potential complications of bleeding, perforation, reaction to medications and missed diagnosis were discussed with the patient with the help of a [place] and informed consent was obtained. Instrument: Olympus PCF H 190 L variable stiffness pediatric colonoscope Monitoring: Vital signs and clinical assessment, intermittent blood pressure monitoring, continuous EKG monitoring, Pulse oximetry and Carbon Dioxide monitoring were done throughout the procedure. Colon withdrawl time was 24 minutes. Procedure: The patient was placed in the left lateral decubitis position and pre-procedure medications were administered. After a digital rectal examination of the ano-rectum, the video colonoscope was inserted into the rectum and advanced through the colon to the cecum. The colonoscope was slowly withdrawn in a retrograde panoramic fashion and the colon mucosa was carefully examined including a retroflexed view of the rectum. Findings and interventions are described below. Procedure Difficulty: Without difficulty Findings: Terminal Ileum: Not evaluated Cecum:? A prominent fold noted in the cecum opposite the ICV - biopsied. Ascending Colon:? Normal Transverse Colon:? Normal Descending Colon:? Moderate diverticulosis Sigmoid Colon:? A 10 mm sessile polyp removed with a cold snare. ?Moderate diverticulosis Rectum:? Normal Ano-rectum:? Moderate internal hemorrhoids and hypertrophied anal papillae Colon preparation: ? Fair despite copious irrigation Impression and Post Procedure Diagnosis: Colonoscopy Findings: One medium sized polyp removed Moderate diverticulosis seen in the left colon Moderate hemorrhoids and hypertrophied anal papillae on retroflexed exam. Plan: Letter will be sent to the patient with pathology results Patient has an appointment on 07/24/2021 in the GI Clinic with Maria Amos M.D. Repeat Colonoscopy interval based on path results - in 2 years if polyps are adenomatous and due to fair prep. Above findings were reviewed with the patient and colon polyps and diverticulosis handouts were given in the discharge area Surgeon: Maria Amos MD Anesthesia:?MAC (Dr Santos) Was an Leadership Development Instructor used for this Procedure?:?Yes Leadership Development Instructor:?Boaz Diaz Estimated blood loss (mL):?0 Pathology:?other (A: SIGMOID POLYP? B: POLYP VS? CECAL FOLD ASCENDING COLON) Condition:?stable Disposition:?PACU
[2021-04-21 13:46] VITALS: BP 112/80; PULSE 69; RESP 18; TEMP 36.3; O2SAT 99
[2021-04-21 14:01] VITALS: BP 134/86; PULSE 63; RESP 16; TEMP 36.3; O2SAT 100
== END 2021-04-21 15:00 | disposition home or self-care (01) ==
PROVIDERS: PCP Internal Medicine; Visit Provider Internal Medicine Gastroenterology
PROC: 0DJD8ZZ Inspection of Lower Intestinal Tract, Via Natural or Artificial Opening Endoscopic (ICD-10-PCS; CPT 45378; principal; 2021-04-21 13:20)
DX: Z12.11 Encounter for screening for malignant neoplasm of colon (principal); K63.5 Polyp of colon; K57.30 Diverticulosis of large intestine without perforation or abscess without bleeding; K64.8 Other hemorrhoids; K62.89 Other specified diseases of anus and rectum; K58.9 Irritable bowel syndrome, unspecified; Z87.19 Personal history of other diseases of the digestive system; K21.9 Gastro-esophageal reflux disease without esophagitis
CPT/HCPCS: 45385; 45380; 88305

== ENCOUNTER → 2021-07-24 12:20 | Outpatient (BNVA) | payer MEDICAID, OTHER, SELFPAY | PROVIDERS: PCP Internal Medicine; Referring Provider Internal Medicine; Visit Provider Internal Medicine Gastroenterology | DX: K57.92 Diverticulitis of intestine, part unspecified, without perforation or abscess without bleeding (principal); K21.9 Gastro-esophageal reflux disease without esophagitis; Z86.010 Personal history of colon polyps | CPT/HCPCS: 99212 ==